=== PATIENT | female | born 2000 | race Two or more races ===

== ENCOUNTER 2023-06-02 10:57 | Emergency (ER) | payer OTHER ==
[2023-06-02 11:28] VITALS: RESP 18; TEMP 98; BMI 19.9
[2023-06-02] MEDS ORDERED: METOCLOPRAMIDE HCL INJECTION 10 MG/2 ML VIAL ONE (12:19)
[2023-06-02] MEDS: METOCLOPRAMIDE HCL INJECTION 10 MG/2 ML VIAL IVPB ONE (12:30)
[2023-06-02] MEDS: DEXTROSE 5%-NORMAL SALINE 1,000 ML IV SCH (12:30)
[2023-06-02] MEDS ORDERED: DEXAMETHASONE SOD PHOSPHATE 10 MG/1 ML VIAL ONE (12:51)
[2023-06-02 12:56] LABS: BASO % 0.3 % (0-2.0); EOS % 0.1 % (0-4.5); HEMATOCRIT 38.5 % (32.4-45.2); HEMOGLOBIN 13.3 GM/dL (10.7-15.3); LYMPH % 20.5 % (8-40); MCH 27.7 pg (25.7-33.7); MCHC 34.4 g/dl (32.0-36.0); MEAN CELL VOLUME 80.5 fl (80-96); MEAN PLT VOLUME 9.3 fl (7.5-11.1); MONO % 5.9 % (3.8-10.2); NEUT % 73.2 % (42.8-82.8); PLATELET COUNT 213 10^3/uL (134-434); RBC 4.79 M/mm3 (3.60-5.2); WHITE BLOOD COUNT 6.8 K/mm3 (4.0-10.0)
[2023-06-02 12:57] LABS: EPI CELLS >36 /uL (0-25.1); HYALINE CASTS 3 /uL (0-3.1); PH,URINE 5.5 (5.0-8.0); URINE APPEARANCE CLOUDY; URINE BACTERIA 2338 /uL (0-1359); URINE BILIRUBIN NEGATIVE (NEGATIVE); URINE COLOR YELLOW; URINE GLUCOSE (UA) NEGATIVE (NEGATIVE); URINE KETONE 4+ (NEGATIVE); URINE LEUK ESTERASE TRACE (NEGATIVE); URINE NITRITE NEGATIVE (NEGATIVE); URINE PROTEIN 1+ (NEGATIVE); URINE RBC 30 /uL (0-23.9); URINE UROBILINOGEN 0.2 mg/dL (0.2-1.0); URINE WBC 51 /uL (0-25.8)
[2023-06-02 13:11] LABS: POTASSIUM 4.1 mmol/L (3.5-5.1)
[2023-06-02 13:12] LABS: CALCIUM 9.8 mg/dL (8.5-10.1)
[2023-06-02 13:13] LABS: ALBUMIN 3.8 g/dl (3.4-5.0); BLOOD UREA NITROGEN 8.7 mg/dL (7-18); MAGNESIUM 1.7 mg/dL (1.8-2.4)
[2023-06-02 13:16] LABS: CREATININE 0.4 mg/dL (0.55-1.3)
[2023-06-02 13:18] LABS: TOT PROT 7.8 g/dl (6.4-8.2)
[2023-06-02 13:23] LABS: BILIRUBIN,TOTAL 0.5 mg/dL (0.2-1)
[2023-06-02] MEDS: PYRIDOXINE HCL (B-6) 100 MG TABLET PO ONE (14:08)
[2023-06-02 15:26] VITALS: BP 105/62; PULSE 95
== END 2023-06-02 15:27 | disposition home or self-care (01) ==
LOC: JER 10:57
PROC: 3E033GC Introduction of Other Therapeutic Substance into Peripheral Vein, Percutaneous Approach (ICD-10-PCS; principal; 2023-06-02)
DX: O21.9 Vomiting of pregnancy, unspecified (principal); O23.41 Unspecified infection of urinary tract in pregnancy, first trimester; Z3A.10 10 weeks gestation of pregnancy
CPT/HCPCS: 36415; 80053; 81003; 83735; 85025; 87086; 99284-25